=== PATIENT | female | born 1960 | race Asian ===

== ENCOUNTER 2017-01-04 03:49 | Emergency (ER) | payer OTHER ==
[~2017-01-04] VITALS: Ht 170.2 cm; Wt 54.4 kg
[2017-01-04] MEDS ORDERED: VENTOLIN HFA18 GM INH ×2 (03:52→04:40)
[2017-01-04 04:02] VITALS: BP 136/77
[2017-01-04] MEDS ORDERED: Solu-MEDROL 125mg Inj IVP ONE (04:30)
[2017-01-04] MEDS: Albuterol ud Inhalation HHN SCH ×3 (04:38→05:00)
[2017-01-04] MEDS: Ipratropium 0.02% Inh Soln 2.5ml UD HHN SCH ×3 (04:38→05:00)
[2017-01-04] MEDS ORDERED: PREDNISONE20 MG ORAL (04:40)
[2017-01-04] MEDS ORDERED: Famotidine 20 MG/ 2ML VIAL IVP ONE (05:15)
[2017-01-04 05:23] LABS: BASOPHILS % (AUTO) 0.5 % (0.0-2.0); LYMPHOCYTES % (AUTO) 8.8 % (20.0-45.0); MEAN CORPUSCULAR HEMOGLOBIN 29.9 PG (27.0-31.0); MEAN CORPUSCULAR HGB CONC 33.1 G/DL (32.0-36.0); MEAN CORPUSCULAR VOLUME 90 FL (80-99); MEAN PLATELET VOLUME 6.5 FL (6.5-10.1); MONOCYTES % (AUTO) 6.7 % (1.0-10.0); PLATELET COUNT 166 K/UL (150-450); RED BLOOD COUNT 4.46 M/UL (4.20-5.40); RED CELL DISTRIBUTION WIDTH 11.6 % (11.6-14.8); WHITE BLOOD COUNT 6.4 K/UL (4.8-10.8)
--- NOTE | 2017-01-04 05:29 | Emergency Room Report ---
History of Present Illness General Chief Complaint: Dyspnea/Respdistress Source: Patient Present Illness HPI 56 YOF non-smoker, known asthmatic with 2 days of SOB, chest tightness, using ventolin Q15 min without much improvement. Also uses Montelukast. No other asthma meds. Not on daily steroids. No previous intubation, bipap or hospitalization for asthma. C/o increased sputum production, chest congestion. Also c/o epigastric stomach pain. Associates it with coughing. No fever/chills , nausea/vomiting, diarrhea or urinary complaints. Known fatty liver. Pre- diabetic. History of acid reflux. Allergies: Coded Allergies: No Known Allergies (Unverified , 01/04/17) Patient History Past Medical History: asthma Past Surgical History: none Pertinent Family History: none Social History: Denies: alcohol use, drug use, smoking Now: No Immunizations: UTD Reviewed Nursing Documentation: PMH: Agreed, PSxH: Agreed Nursing Documentation-PMH Hx Asthma: Yes Review of Systems All Other Systems: negative except mentioned in HPI Physical Exam Vital Signs Date Time Temp Pulse Resp B/P Pulse Ox O2 Delivery O2 Flow Rate FiO2 01/04/17 03:47 99.1 133 24 135/77 99 Simple Mask 5.0 Sp02 EP Interpretation: reviewed, normal General Appearance: normal inspection, well appearing, no apparent distress, alert, GCS 15, non-toxic Head: normocephalic, atraumatic Eyes: bilateral eye EOMI, bilateral eye PERRL ENT: normal ENT inspection, hearing grossly normal, normal voice Neck: normal inspection, full range of motion, supple, no bony tend Respiratory: normal inspection, lungs clear, normal breath sounds, no rhonchi, no respiratory distress, no retraction, no accessory muscle use, speaking full sentences, wheezing Cardiovascular #1: regular rate, rhythm, no edema Gastrointestinal: normal inspection, normal bowel sounds, soft, no guarding, no hernia, other - Mild epigastric ttp Genitourinary: no CVA tenderness Musculoskeletal: normal inspection, back normal, normal range of motion, Aracelis' s Sign negative Neurologic: normal inspection, alert, oriented x3, responsive, esthetic[employer] III-XII nml as tested, motor strength/tone normal, speech normal Psychiatric: normal inspection, judgement/insight normal, mood/affect normal Skin: normal inspection, normal color, no rash Lymphatic: normal inspection Medical Decision Making Diagnostic Impression: Primary Impression: Asthma exacerbation Additional Impressions: Abdominal pain Qualified Codes: R10.13 - Epigastric pain Hyperglycemia Elevated liver enzymes ER Course Acute asthma exacebration VSS. Afebrile. No hypoxia End exp wheezing resolved after duonebs X3 and prednisone CXR negative for PNA but will Rx Z-pack for atypical PNA given increased sputum production Labs: No leuks. H&H stable. Mild elevation LFTs. Elevated glucose. ECG is sinus tach, no iscmeia Ventolin refilled, Rx Prednisone Elevated LFTs likely related to fatty liver. No elevated bili - low suspicion for acute [place]. PMD followup for hyperglycemia, fatty liver EKG Diagnostic Results Rate: tachycardiac Rhythm: NSR ST Segments: no acute changes ASA given to the pt in ED: No Rhythm Strip Diag. Results EP Interpretation: yes Rate: 109 Rhythm: NSR, no PVC's, no ectopy Chest X-Ray Diagnostic Results EP Interpretation: Yes Findings: no consolidation, no effusion, no pneumothorax, no acute cardiopulmonary disease Number of Views: 1 Last Vital Signs Date Time Temp Pulse Resp B/P Pulse Ox O2 Delivery O2 Flow Rate FiO2 01/04/17 05:19 119 21 100 Room Air 01/04/17 04:03 5.0 01/04/17 04:02 99.1 136/77 Status: improved Disposition: HOME, SELF-CARE Condition: Serious Scripts Azithromycin* (ZITHROMAX*) 250 Mg Tablet 250 MG ORAL DAILY for 4 Days, #4 TAB 0 Refills Prov: HERI JIN M.D. 01/04/17 Acetaminophen With Codeine (T#3) (TYLENOL #3 TAB*) Y Tab 1 TAB ORAL QHS Y for For Cough for 7 Days, #30 TAB Prov: HERI JIN M.D. 01/04/17 Prednisone* (PREDNISONE*) 20 Mg Tablet 40 MG ORAL DAILY for 5 Days, #5 TAB Prov: HERI JIN M.D. 01/04/17 Albuterol Sulfate (VENTOLIN HFA) 18 Gm Hfa.aer.ad 2 PUFFS INH EVERY 6 HOURS, #18 GM 0 Refills Prov: HERI JIN M.D. 01/04/17 Patient Instructions: Asthma, Adult, [id number] Additional Instructions: - Take prednisone twice daily for next 3 days - Use ventolin as needed for cough, chest tightness - Follow up with your doctor or shirrer in 1 week HERI JIN M.D. Jan 04, 2017 05:29
[2017-01-04 05:41] LABS: ALANINE AMINOTRANSFERASE 49 U/L (3-33); ALBUMIN/GLOBULIN RATIO 1.2 (1.0-2.7); ANION GAP 19 (5-15); ASPARTATE AMINO TRANSFERASE 41 U/L (5-40); CALCIUM 8.9 mg/dL (8.6-10.2); CARBON DIOXIDE 24 mEQ/L (20-30); CHLORIDE 91 mEQ/L (98-107); CREATININE 0.6 mg/dL (0.5-0.9); GLOMERULAR FILTRATION RATE > 60 mL/min (>60); HEMOLYSIS 8; LIPASE 14 U/L (< 60); POTASSIUM 3.1 mEQ/L (3.4-4.9); SODIUM 134 mEQ/L (135-145); TOTAL PROTEIN 7.2 g/dL (6.6-8.7)
[2017-01-04] MEDS ORDERED: ACETAMINOPHEN-1 EAC1 ORAL (05:53)
[2017-01-04] MEDS ORDERED: AZITHROMYCIN250 MG ORAL (05:53)
[2017-01-04] MEDS ORDERED: Azithromycin 250mg tab ORAL ONE (06:00)
[2017-01-04 06:02] VITALS: BP 113/68
[2017-01-04 06:05] LABS: TROPONIN I < 0.30 ng/mL (<=0.30)
[2017-01-04 06:53] LABS: CKMB 2.2 ng/mL (< 3.8)
[2017-01-04 07:00] VITALS: BP 113/68
--- NOTE | 2017-01-04 12:27 | Diagnostic Imaging Report ---
Indication: PAIN Technique: One view of the chest Comparison: none Findings: Lungs and pleural spaces are clear. Heart size is normal. Impression: No acute process
--- NOTE | 2017-01-09 11:47 | Cardiology Report ---
APPROVED REPORT EKG Measurement Heart [id number] [id number] Sinus tachycardia Possible Left atrial enlargement Rightward axis Septal infarct, age undetermined Abnormal ECG
== END 2017-01-04 07:00 | disposition home or self-care (01) ==
LOC: EDBD 03:49 → EMR 04:01
DX: J45.901 Unspecified asthma with (acute) exacerbation (principal); R10.13 Epigastric pain; R79.89 Other specified abnormal findings of blood chemistry
CPT/HCPCS: 36415; 71010; 80053; 82550; 82553; 83690; 84484; 85025; 93005; 94640; 96374; 96375; 99284; J2405; J2930; Q0144; S0028